=== PATIENT | male | born 1955 | race African-American/Black ===

== ENCOUNTER 2019-01-15 01:05 | Emergency (ER) | payer OTHER ==
[~2019-01-15] VITALS: Ht 172.7 cm; Wt 65.8 kg
[2019-01-15] MEDS ORDERED: NORCO 10-325 T1 EACH ORAL (01:13)
[2019-01-15] MEDS ORDERED: DILANTIN30 MG ORAL (01:13)
[2019-01-15] MEDS ORDERED: ABILIFY2 MG ORAL (01:13)
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
[2019-01-15] MEDS ORDERED: HYDROmorphone 1mg/ml Carpuject IM ONE (01:30)
[2019-01-15] MEDS ORDERED: Tetanus/Diptheria/Pertussis IM ONE (01:30)
[2019-01-15] MEDS ORDERED: CEPHALEXIN500 MG ORAL (02:13)
[2019-01-15] MEDS ORDERED: HYDROCODON-ACE1 EA15 ORAL (02:13)
[2019-01-15] MEDS ORDERED: HYDROcodone/Acetamin 5/325 tab ORAL ONE (02:15)
[2019-01-15 02:30] VITALS: BP 138/64
--- NOTE | 2019-01-15 03:30 | NUR ---
ED Nurse Note: MEDS GIVEN FOR PAIN EFFECTIVE, PT STATES PAIN AT 3/10, PT REMAINS ON CARDIAC MONITORING, DENIES CP, NO SZ ACTIVITY NOTED, V/S STABLE, MD AT BEDSIDE SUTURING LAC TO PT LEFT ELBOW, WILL RESUME CARE ORDERED AND CONTINUE TO CLOSELY MONITOR, PT CONTINUES TO REST QUIETLY IN BED.
[2019-01-15] MEDS ORDERED: Propofol 200mg/20ml IV ONE (03:45)
--- NOTE | 2019-01-15 05:00 | NUR ---
ED Nurse Note: PT IN BED SLEEPING, AROUSES EASILY TO VERBAL STIMULI, PT TO BE DISCHARGEDF IN AM, REMAINS ON SEIZURE PRECAUTIONS, NO ACTIVITY NOTED, PT ON CARDIAC MONITORING, V/S STABLE, NO CP OR ANY PAIN, PT TO BE DISCHARGED IN AM, STATING THE HOUSE HE IS STAYING AT HE CANT GO TIL AM, PT GIVEN SANDWICH, JUICE AND FRUIT, ATE ALL AND TOLERATED WELL, WILL CONTINUE TO CLOSELY MONITOR AND DISCHARGE IN AM.
[2019-01-15 05:20] VITALS: BP 129/72
[2019-01-15 06:45] VITALS: BP 124/79
--- NOTE | 2019-01-15 06:45 | NUR ---
ED Nurse Note: Pt being d/c to home, awake, alert and oriented x 4, ambulatory, denies pain, pt given taxi voucher to residence, pt also given f/u info and after care instructions, pt re-verbalizes proper medication administration, pt now denies being homeless and is going to address where he resides, pt leaving ambulatory, assisted to taxi, has all belongings, nad noted chasidy d/c.
[2019-01-15 07:02] VITALS: BP 124/79
== END 2019-01-15 07:04 | disposition home or self-care (01) ==
LOC: EDBD 01:05 → EMR 01:14
DX: R51 Headache (principal); S51.012A Laceration without foreign body of left elbow, initial encounter; S09.90XA Unspecified injury of head, initial encounter; W19.XXXA Unspecified fall, initial encounter; Y92.9 Unspecified place or not applicable; I10 Essential (primary) hypertension; Z23 Encounter for immunization
CPT/HCPCS: 12001; 70450; 73080; 90471; 90715; 99284; J1170; Z7502

== ENCOUNTER 2019-06-28 19:22 | Emergency (ER) | payer MEDICARE, OTHER ==
[~2019-06-28] VITALS: Ht 172.7 cm; Wt 59.9 kg
[~2019-06-28 19:22] MED LIST: ABILIFY2 MG ORAL; CEPHALEXIN500 MG ORAL; DILANTIN30 MG ORAL; HYDROCODON-ACE1 EA15 ORAL; NORCO 10-325 T1 EACH ORAL
--- NOTE | 2019-06-28 19:33 | NUR ---
ED Nurse Note: Pt EYAD fom street c/o dizziness and headache for 12 hrs. Pt stated unk cause, "room is spinning". hx of blindness worse on RT eye. Denies trauma. Pt is AAOx4, vss no acute distress
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
[2019-06-28] MEDS ORDERED: Bactrim-DS 1 tab ORAL ONE (21:15)
[2019-06-28] MEDS ORDERED: cefTRIAXone 1 GM in NS 55 ML IVPB ONE (21:15)
[2019-06-28 21:16] LABS: ANION GAP 11 mmol/L (5-15); BLOOD UREA NITROGEN 12 mg/dL (7-18); CALCIUM 9.8 MG/DL (8.5-10.1); CARBON DIOXIDE 27 MMOL/L (21-32); CHLORIDE 106 MMOL/L (98-107); CREATININE 1.1 MG/DL (0.55-1.30); POTASSIUM 4.7 MMOL/L (3.5-5.1); SODIUM 144 MMOL/L (136-145)
[2019-06-28 21:21] LABS: BASOPHILS % (AUTO) 1.8 % (0.0-2.0); EOSINOPHILS % (AUTO) 0.5 % (0.0-3.0); HEMOGLOBIN 15.1 G/DL (14.2-18.0); MEAN CORPUSCULAR VOLUME 94 FL (80-99); MONOCYTES % (AUTO) 15.4 % (1.0-10.0); NEUTROPHILS % (AUTO) 59.4 % (45.0-75.0); PLATELET COUNT 205 K/UL (150-450); RED BLOOD COUNT 4.99 M/UL (4.70-6.10); RED CELL DISTRIBUTION WIDTH 14.1 % (11.6-14.8); WHITE BLOOD COUNT 8.4 K/UL (4.8-10.8)
[2019-06-28] MEDS ORDERED: IBUPROFEN600 MG ORAL (21:25)
[2019-06-28] MEDS ORDERED: BACTRIM DS TAB1 EAC1 ORAL (21:25)
[2019-06-28 21:29] LABS: ALANINE AMINOTRANSFERASE 46 U/L (12-78); ALBUMIN 3.8 G/DL (3.4-5.0); ALBUMIN/GLOBULIN RATIO 0.7 (1.0-2.7); ALKALINE PHOSPHATASE 55 U/L (46-116); ASPARTATE AMINO TRANSFERASE 56 U/L (15-37); BILIRUBIN,TOTAL 0.8 MG/DL (0.2-1.0)
[2019-06-28 22:00] VITALS: BP 129/86
--- NOTE | 2019-06-28 22:00 | NUR ---
SPOKE TO ARIS, PT CAN GO TO [facility] AT 7AM.
--- NOTE | 2019-06-29 05:48 | NUR ---
ED Nurse Note: Pt is sleeping and waiting for a taxi.
[2019-06-29 07:00] VITALS: BP 126/83
[2019-06-29 07:30] VITALS: BP 126/83
--- NOTE | 2019-06-29 07:30 | NUR ---
ER DISCHARGE NOTE:pt. was provided with taxi voucher and seeted into the cab Patient is cleared to be discharged per ERMD, pt is aox4, on room air, with stable vital signs. pt was given dc and prescription instructions, pt was able to verbalize understanding, pt id band and iv site removed without complications. pt is able to ambulate with cane and steady gait. pt took all belongings.
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
== END 2019-06-29 07:30 | disposition home or self-care (01) ==
LOC: EDBD 19:22 → EMR 23:03
DX: R53.1 Weakness (principal); J32.0 Chronic maxillary sinusitis; E86.0 Dehydration; H54.3 Unqualified visual loss, both eyes; I10 Essential (primary) hypertension; F17.210 Nicotine dependence, cigarettes, uncomplicated
CPT/HCPCS: 36415; 70450; 80053; 84443; 85025; 85610; 85730; 96365; 99284; J0696

== ENCOUNTER 2019-08-14 07:00 | Inpatient (IN) | payer MEDICARE, OTHER ==
[~2019-08-14] VITALS: Ht 175.3 cm; Wt 57.8 kg
[~2019-08-14 07:00] MED LIST changes: +BACTRIM DS TAB1 EAC1 ORAL; +IBUPROFEN600 MG ORAL
[2019-08-14 07:10] VITALS: BP 143/90
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
[2019-08-14] MEDS ORDERED: HYDROcodone/Acetamin 5/325 tab ORAL ONE (07:15)
[2019-08-14 07:47] LABS: BASOPHILS % (AUTO) 1.7 % (0.0-2.0); EOSINOPHILS % (AUTO) 0.3 % (0.0-3.0); HEMATOCRIT 40.8 % (42.0-52.0); HEMOGLOBIN 13.3 G/DL (14.2-18.0); LYMPHOCYTES % (AUTO) 29.4 % (20.0-45.0); MEAN CORPUSCULAR VOLUME 91 FL (80-99); MONOCYTES % (AUTO) 14.8 % (1.0-10.0); NEUTROPHILS % (AUTO) 53.7 % (45.0-75.0); PLATELET COUNT 187 K/UL (150-450); RED BLOOD COUNT 4.51 M/UL (4.70-6.10); RED CELL DISTRIBUTION WIDTH 13.9 % (11.6-14.8); WHITE BLOOD COUNT 10.3 K/UL (4.8-10.8)
[2019-08-14 07:58] LABS: ANION GAP 8 mmol/L (5-15); BLOOD UREA NITROGEN 28 mg/dL (7-18); CALCIUM 8.6 MG/DL (8.5-10.1); CARBON DIOXIDE 28 MMOL/L (21-32); CHLORIDE 106 MMOL/L (98-107); CREATININE 1.2 MG/DL (0.55-1.30); POTASSIUM 4.3 MMOL/L (3.5-5.1); SODIUM 142 MMOL/L (136-145)
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
[2019-08-14 08:08] LABS: ALANINE AMINOTRANSFERASE 46 U/L (12-78); ALBUMIN 3.5 G/DL (3.4-5.0); ALBUMIN/GLOBULIN RATIO 0.7 (1.0-2.7); ALKALINE PHOSPHATASE 50 U/L (46-116); ASPARTATE AMINO TRANSFERASE 95 U/L (15-37); BILIRUBIN,TOTAL 0.5 MG/DL (0.2-1.0)
--- NOTE | 2019-08-14 08:40 | NUR ---
ED Nurse Note: contacted neighborhood planner for placement per ERMD's order.
[2019-08-14 09:10] VITALS: BP 146/88
[2019-08-14 11:10] VITALS: BP 148/87
--- NOTE | 2019-08-14 12:14 | NUR ---
ED Nurse Note: pt moved to Hallway bed due to stable vital signs.
[2019-08-14 13:10] VITALS: BP 136/85
--- NOTE | 2019-08-14 14:19 | NUR ---
ED Nurse Note: communications planner at the bedside.
--- NOTE | 2019-08-14 14:28 | NUR ---
ED Nurse Note: AVILA FOLEY
--- NOTE | 2019-08-14 14:32 | NUR ---
ED Nurse Note: per outreach coordinator, pt is not homeless. discharg coordinator called pt's clinical social work therapist and was able to speak to pt's nephew. he will pick pt up after work. CN made aware.
[2019-08-14 17:10] VITALS: BP 137/84
--- NOTE | 2019-08-14 17:30 | NUR ---
ED Nurse Note: SPOKE WITH AVILA FOLEY , THE NEPHEW THAT HE GETS OUT AT 10PM AND INFORMED HIM IF ANYONE IS AT HOME SO WE CAN PROVIDE TRANSPORTATION FOR THEN PT. AVILA STATED THAT HE GETS OFF NOW AROUND [id number]. WAS TOLD THAT HE MIGHT PICK HIM UP TOMORROW IF CANNOT TODAY
--- NOTE | 2019-08-14 19:09 | NUR ---
HAND-OFF: Report given to MARION Deleon. no orders to carry at this moment. waiting for the nephew to pick pt up. pt stable.
--- NOTE | 2019-08-14 19:10 | NUR ---
ED Nurse Note: Received pt from Sonny. RN. Pt stable and in bed. No sign of distress.
--- NOTE | 2019-08-14 21:10 | NUR ---
ED Nurse Note: Pt in bed with no sign of distress.
--- NOTE | 2019-08-14 21:45 | NUR ---
Note cristinacarmelo in EDM - 08/14/19 at 2207 by TODDEARING ER DISCHARGE NOTE: Patient is cleared to be discharged per ERMD, pt is aox4, on room air, with stable vital signs. pt was given dc and prescription instructions, pt was able to verbalize understanding, pt id band and iv site removed without complications. pt is able to ambulate with steady gait. pt took all belongings.
[2019-08-14 22:30] VITALS: BP 130/81
--- NOTE | 2019-08-14 23:15 | NUR ---
ED Nurse Note: Pt is sleeing with no complaints. Pt refused food and drink.
--- NOTE | 2019-08-15 00:31 | NUR ---
ED Nurse Note: Pt resting with no complaints.
[2019-08-15 00:33] VITALS: BP 135/86
--- NOTE | 2019-08-15 02:00 | NUR ---
ED Nurse Note: Pt is resting after eating.
--- NOTE | 2019-08-15 04:15 | NUR ---
Pt is resting.
--- NOTE | 2019-08-15 05:04 | NUR ---
ED Nurse Note: Called family for pick-up update; no one answered or replied.
--- NOTE | 2019-08-15 07:22 | Cardiology Report ---
APPROVED REPORT EKG Measurement Heart [id number] Sinus rhythm with premature atrial complexes Possible Left atrial enlargement Left ventricular hypertrophy Prolonged QT Abnormal ECG
--- NOTE | 2019-08-15 08:25 | NUR ---
CALLED AVILA TO FIND OUT WHAT TIME HE WILL BE COMING TO STEAM AND POWER SUPERINTENDENT THE PATIENT LEFT THE MESSAGE
[2019-08-15 09:12] VITALS: BP 146/96
--- NOTE | 2019-08-15 09:14 | NUR ---
ED Nurse Note: call placed to José Miguel nephew tp come get pt. voicemail left, pt aware. pt requesting eye patch. given to pt gauze pad. storage battery charger aware awaiting family to pick remover pt.
[2019-08-15 15:34] VITALS: BP 145/82
[2019-08-15] MEDS ORDERED: HydrALAZINE 25mg tab ORAL PRN (16:45)
[2019-08-15] MEDS: Docusate 100mg cap ORAL SCH (18:29)
--- NOTE | 2019-08-15 19:25 | NUR ---
NURSE NOTES: Received a report from MARION Pulido. Pt is in stable condition. AOX2. Able to make needs known. On room air. No c/o pain/discomfort. IV site is patent and intact. Bed in lowest position. Bed alarm is on. Will continue to monitor.
--- NOTE | 2019-08-15 19:34 | NUR ---
HAND-OFF: Report given to Elia SCHULTZ. pt in stable condition. - incoming nurse is aware that pt needs to NPO after midnight for EGD. Addendum: 08/15/19 at 1936 by Ashok Conn RN this notes belong to another patient. Pls discard
[2019-08-15 19:56] VITALS: BP 131/89
[2019-08-16 04:00] VITALS: BP 143/102
[2019-08-16 05:53] LABS: BASOPHILS % (AUTO) 0.9 % (0.0-2.0); EOSINOPHILS % (AUTO) 1.7 % (0.0-3.0); HEMOGLOBIN 14.4 G/DL (14.2-18.0); LYMPHOCYTES % (AUTO) 41.6 % (20.0-45.0); MEAN CORPUSCULAR VOLUME 90 FL (80-99); NEUTROPHILS % (AUTO) 39.9 % (45.0-75.0); PLATELET COUNT 152 K/UL (150-450); RED BLOOD COUNT 4.97 M/UL (4.70-6.10); RED CELL DISTRIBUTION WIDTH 13.4 % (11.6-14.8); WHITE BLOOD COUNT 6.5 K/UL (4.8-10.8)
[2019-08-16 06:01] LABS: APPEARANCE,URINE CLEAR; BILIRUBIN, URINE NEGATIVE (NEGATIVE); GLUCOSE, URINE (UA) NEGATIVE (NEGATIVE); KETONES,URINE NEGATIVE (NEGATIVE); LEUKOCYTE ESTERASE ,URINE 2+ (NEGATIVE); NITRITE,URINE NEGATIVE (NEGATIVE); PH,URINE 6 (4.5-8.0); PROTEIN,URINE NEGATIVE (NEGATIVE); UROBILINOGEN,URINE 4 MG/DL (0.0-1.0)
[2019-08-16 06:24] LABS: ALANINE AMINOTRANSFERASE 53 U/L (12-78); ALBUMIN 3.2 G/DL (3.4-5.0); ALBUMIN/GLOBULIN RATIO 0.7 (1.0-2.7); ALKALINE PHOSPHATASE 51 U/L (46-116); ANION GAP 5 mmol/L (5-15); ASPARTATE AMINO TRANSFERASE 80 U/L (15-37); BILIRUBIN,TOTAL 1.4 MG/DL (0.2-1.0); BLOOD UREA NITROGEN 14 mg/dL (7-18); CALCIUM 8.6 MG/DL (8.5-10.1); CARBON DIOXIDE 30 MMOL/L (21-32); CHLORIDE 102 MMOL/L (98-107); CHOLESTEROL 151 MG/DL (< 200); CREATININE 0.9 MG/DL (0.55-1.30); HDL CHOLESTEROL 78 MG/DL (40-60); PHOSPHORUS 3.5 MG/DL (2.5-4.9); POTASSIUM 3.8 MMOL/L (3.5-5.1); SODIUM 137 MMOL/L (136-145); TRIGLYCERIDES 52 MG/DL (30-150)
[2019-08-16 06:41] LABS: BILIRUBIN,DIRECT 0.4 MG/DL (0.0-0.3)
[2019-08-16 07:00] LABS: COLOR,URINE YELLOW
--- NOTE | 2019-08-16 07:40 | NUR ---
HAND-OFF: Report given to MARION Pulido.
--- NOTE | 2019-08-16 07:51 | NUR ---
NURSE NOTES: Received report from Monique SCHULTZ, pt sleeping in bed with no signs of distress or other issues at this time. IV on right AC gauge#20 heplock. call light within reach, bed in lowest position. side rales up x2. I will f/u as needed. - pending placement.
[2019-08-16] MEDS: Docusate 100mg cap ORAL SCH ×3 (08:27→16:47)
--- NOTE | 2019-08-16 10:01 | NUR ---
*-* NO INSURANCE INFORMATION IN THE BAR UNABLE TO SEND CLINICALS OR REVIEWS *-*
[2019-08-16 12:00] VITALS: BP 116/68
[2019-08-16] MEDS: HYDROcodone/Acetamin 5/325 tab ORAL PRN (16:47)
--- NOTE | 2019-08-16 19:27 | NUR ---
HAND-OFF: Report given to Jeremie SCHULTZ, pt in stable condition. During my shift multiple attempt were made to his caregiver at [phone](P) also called and left messages to pt's adoption social worker Mrs. Suazo at [phone](P) from the [facility] dept. per patient she has the information of his caregiver as well as his address. awaiting for respond. Incoming nurse is aware.
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
[2019-08-16 20:00] VITALS: BP 130/83
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
--- NOTE | 2019-08-17 02:15 | History and Physical Report ---
DATE OF ADMISSION: 08/16/2019 HISTORY OF PRESENT ILLNESS: The patient is admitted for weakness, azotemia, low magnesium level. The patient also complains of chronic pain and headaches. Denies nausea, vomiting, or diarrhea. No shortness of breath. Denies cough. Denies chills. PAST MEDICAL HISTORY: Chronic pain syndrome, psychosis, history of seizure, and constipation. PAST SURGICAL HISTORY: Brain surgery and eye surgery. SOCIAL HISTORY: History of smoking. The patient is homeless. Denies alcohol or illicit drugs. ALLERGIES: No known allergies. MEDICATIONS: Abilify and Dilantin. Takes pain medication. FAMILY HISTORY: Noncontributory. REVIEW OF SYSTEMS: HEENT: He does have headache occasionally. CARDIOVASCULAR: Denies chest pain. RESPIRATORY: Denies orthopnea. GASTROINTESTINAL: Denies nausea, vomiting, or diarrhea. EXTREMITIES: Does have chronic pain. NEUROLOGIC: Denies change in speech pattern. The patient has poor vision. PHYSICAL EXAMINATION: VITAL SIGNS: Temperature is 98.3, pulse 68, and blood pressure 139/89. HEENT: PERRLA. NECK: Supple. No lymphadenopathy. CHEST: Clear to auscultation. CARDIOVASCULAR: Regular rate and rhythm. No murmurs or extra sounds. GASTROINTESTINAL: Soft, nontender, and nondistended. No organomegaly. EXTREMITIES: No edema. Moves all four extremities. NEUROLOGIC: Sensory is intact to light touch. Reflexes equal on both sides with generalized weakness. LABORATORY DATA: WBC of 10.3 and hemoglobin of 13.3. Sodium 142, potassium 4.3, BUN of 20, and creatinine 1.2. ASSESSMENT AND PLAN: 1. Weakness. 2. Dehydration. 3. Azotemia. 4. Psychiatric patient . I have asked Dr. Pompa, Dr. Astudillo, and Dr. Kuo to see the patient for the chronic pain and weakness as well as azotemia. Mj Cheng M.D. DR: Velma JOB#: [id number] CC:
--- NOTE | 2019-08-17 06:20 | NUR ---
NURSE NOTES: Dr. Preciado called and spoke with me. He would like to wean the patient off the dilaudid. Continue to administer roxicodone Q3hr per order. Only use dilaudid as breakthrough. Addendum: 08/17/19 at 0630 by Jereime Morales RN Wrong patient documentation
--- NOTE | 2019-08-17 07:00 | NUR ---
NURSE NOTES: HANDOFF RECEIVED FROM MRAION CROCKER. PATIENT RECEIVED AWAKE AND ALERT, RESTING IN BED. PATIENT ABLE TO MAKE NEEDS KNOWN. BED IN THE LOW AND LOCKED POSITION WITH CALL LIGHT WITHIN REACH. PATIENT HAS NO IV ACCESS, NO ORDERS FOR IV FLUIDS. NO VISIBLE SIGNS OF DISTRESS NOTED. WILL CONTINUE TO MONITOR.
--- NOTE | 2019-08-17 07:29 | NUR ---
HAND-OFF: Report given to CHIARA ROLDAN RN. PATIENT IN STABLE CONDITION.
[2019-08-17] MEDS: Docusate 100mg cap ORAL SCH ×3 (08:25→17:51)
[2019-08-17] MEDS: HYDROcodone/Acetamin 5/325 tab ORAL PRN (08:28)
[2019-08-17 08:34] VITALS: BP 135/90
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
--- NOTE | 2019-08-17 11:10 | NUR ---
NURSE NOTES: ASSISTED PATIENT IN ATTEMPTING TO CALL HIS NEPHEW AVILA AND PT SKILLED POWER DRAKE MULTIPLE TIMES THIS AM. PATIENT'S NEPHEW'S PHONE GOING STRAIGHT TO VOICEMAIL. DID NOT HAVE ANY LUCK IN SPEAKING TO THE PT SKILLED EITHER. PATIENT LEFT MESSAGE FOR PT SKILLED AND HOPES TO HEAR BACK.
[2019-08-17 11:36] VITALS: BP 140/93
[2019-08-17 11:38] LABS: APPEARANCE,URINE CLEAR; BILIRUBIN, URINE NEGATIVE (NEGATIVE); COLOR,URINE PALE YELLOW; GLUCOSE, URINE (UA) NEGATIVE (NEGATIVE); KETONES,URINE NEGATIVE (NEGATIVE); LEUKOCYTE ESTERASE ,URINE 2+ (NEGATIVE); NITRITE,URINE NEGATIVE (NEGATIVE); PH,URINE 5 (4.5-8.0); PROTEIN,URINE NEGATIVE (NEGATIVE); UROBILINOGEN,URINE NORMAL MG/DL (0.0-1.0)
--- NOTE | 2019-08-17 11:41 | NUR ---
*-* INSURANCE *-* ALL AVAILABLE CLINICALS HAVE BEEN FAXED TO: WILMAN Hung CM or Ref# yet #[phone] fax#[phone]
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
--- NOTE | 2019-08-17 18:10 | NUR ---
NURSE NOTES: NOTICED PATIENT DOES NOT HAVE ANY DVT/VTE PROPHYLAXIS. CALLED AND LEFT A MESSAGE FOR DR BLEDSOE. AWAITING TO HEAR BACK FOR ORDERS.
--- NOTE | 2019-08-17 19:34 | NUR ---
HAND-OFF: Report given to MARION ALONSO.
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
[2019-08-17 19:57] VITALS: BP 128/85
--- NOTE | 2019-08-17 21:22 | General Progress Note ---
Assessment/Plan Problem List: (1) Chronic headache ICD Codes: R51 - Headache SNOMED: 068327396, 470863526 (2) Dizziness ICD Codes: R42 - Dizziness and giddiness SNOMED: 623016036, 762406535 (3) Generalized weakness ICD Codes: R53.1 - Weakness SNOMED: 20008365 Status: progressing Assessment/Plan: weakness chronic pain r/o uti afebrile reviewed chart and labs Subjective ROS Limited/Unobtainable: Yes Allergies: Coded Allergies: No Known Allergies (Unverified , 01/15/19) Objective Last 24 Hour Vital Signs Date Time Temp Pulse Resp B/P (MAP) Pulse Ox O2 Delivery O2 Flow Rate FiO2 08/17/19 11:36 97.3 64 20 140/93 (109) 96 08/17/19 09:00 Room Air 08/17/19 08:34 98.1 69 20 135/90 (105) 97 08/17/19 08:27 69 135/90 Intake and Output 08/16/19 08/17/19 19:00 07:00 Intake Total 960 ml Balance 960 ml Intake Oral 960 ml # Voids 3 Laboratory Tests 08/17/19 11:20: Urine Color Pale yellow, Urine Appearance Clear, Urine pH 5, Urine Specific [place] 1.010, Urine Protein Negative, Urine Glucose (UA) Negative, Urine Ketones Negative, Urine Blood Negative, Urine Nitrite Negative, Urine Bilirubin Negative, Urine Urobilinogen Normal, Urine Leukocyte Esterase 2+H, Urine RBC 0- 2H, Urine WBC 10-15H, Urine Squamous Epithelial Cells Few, Urine Bacteria Few Height (Feet): 5 Height (Inches): 9.00 Weight (Pounds): 127 Neck: supple Cardiovascular: normal rate Respiratory/Chest: lungs clear Mj Cheng MD Aug 17, 2019 21:22
--- NOTE | 2019-08-18 07:36 | NUR ---
HAND-OFF: Report given to MARION Prater.
--- NOTE | 2019-08-18 07:49 | NUR ---
NURSE NOTES: received report from MARION Wiggins. patient in bed. sleeping. breathing even and unlabored. no facial grimacing noted. IV on RFA 22 saline lock intact. ID band on lt arm. legally blind with need assist for ambulation and bathroom. bed in the lowest position and locked. call light within reach. alarm on. will continue to provide plan of care.
[2019-08-18 08:00] VITALS: BP 147/91
[2019-08-18] MEDS: Docusate 100mg cap ORAL SCH ×3 (08:53→17:46)
[2019-08-18 08:55] VITALS: BP 147/91
[2019-08-18] MEDS: HYDROcodone/Acetamin 5/325 tab ORAL PRN ×2 (08:59→21:45)
--- NOTE | 2019-08-18 09:30 | NUR ---
NURSE NOTES: Dr. Cheng called in and talked to the patient for discharge plan. RN received order from DR. Cheng. the patient will be discharged to [facility] under Dr. Cheng care on 08/19/2019. order noted and carried out.
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
--- NOTE | 2019-08-18 09:54 | NUR ---
Social Work This Sw met with patient to discuss discharge planning. Patient appears realistic regarding his nephew not being a good contact for assistance after discharge and realizes he is on his own regarding discharge plans from here. Patient explains he spoke with primary M.D and in agreement with placement tomorrow at [facility]. Patient explains he will follow up with a friend after discharge to locate his section 8 Housing (has been approved for this). Due to his blindness, patient will require assistance with this, along with [facility] caregiver to assist him with groceries, transportation, etc once he is in his new apartment. Patient also explains he is thinking about moving to [place], [place] to live with his nice, who is more reliable for him. This SW provided support and counseling regarding problem solving and decision making towards his housing and care needed after discharge. No other needs or concerns present at this time.
--- NOTE | 2019-08-18 10:02 | NUR ---
NURSE NOTES: patient dilantin level 0.5 on 08/15/19. patient takes dilantin 30mg cap Q8hors at home. RN paged Baudilio Purvis and waiting for further order.
--- NOTE | 2019-08-18 10:18 | Nephrology Progress Note ---
Assessment/Plan Problem List: (1) Generalized weakness (2) HTN (hypertension) (3) Possible urinary tract infection Assessment HTN UTI chronic headaches Psych disease Plan BP meds Per consultants re check UA and c/s Subjective ROS Limited/Unobtainable: No Objective Objective Last 24 Hour Vital Signs Date Time Temp Pulse Resp B/P (MAP) Pulse Ox O2 Delivery O2 Flow Rate FiO2 08/18/19 09:00 Room Air 08/18/19 08:55 98.0 76 19 147/91 (109) 97 08/18/19 08:55 76 147/91 08/18/19 08:00 98.0 59 19 147/91 (109) 97 08/17/19 21:00 Room Air 08/17/19 19:57 98.4 63 19 128/85 (99) 100 08/17/19 11:36 97.3 64 20 140/93 (109) 96 Intake and Output 08/17/19 08/18/19 18:59 06:59 Intake Total 720 ml 480 ml Output Total 400 ml 1550 ml Balance 320 ml -1070 ml Intake Oral 720 ml 480 ml Output Urine Total 400 ml 1550 ml # Voids 3 3 Laboratory Tests 08/17/19 11:20: Urine Color Pale yellow, Urine Appearance Clear, Urine pH 5, Urine Specific [place] 1.010, Urine Protein Negative, Urine Glucose (UA) Negative, Urine Ketones Negative, Urine Blood Negative, Urine Nitrite Negative, Urine Bilirubin Negative, Urine Urobilinogen Normal, Urine Leukocyte Esterase 2+H, Urine RBC 0- 2H, Urine WBC 10-15H, Urine Squamous Epithelial Cells Few, Urine Bacteria Few Height (Feet): 5 Height (Inches): 9.00 Weight (Pounds): 127 General Appearance: no apparent distress Objective no change Beka Astudillo MD Aug 18, 2019 10:18
[2019-08-18 12:00] VITALS: BP 128/84
--- NOTE | 2019-08-18 15:32 | NUR ---
STEEL LAYERCASH ACCOUNTING CLERK SI; WEAKNESS T. 98.1 HR 59 RR 19 B/P 147/91 IS: NEURONTIN PO SEROQUEL PO NORVASC PO PROTONIX PO PLACEMENT PENDING MED/SURG STATUS
--- NOTE | 2019-08-18 18:45 | Progress Note ---
DATE: 08/18/2019 SUBJECTIVE: The patient is in bed, no acute distress noted. The patient is awaiting discharge, calm cooperative, legally blind, some anxiety however is manageable. He is being discharged to a facility. MENTAL STATUS EVALUATION: Alert and oriented times self, place, and situation. Mood is neutral. Affect is constricted. Congruent with mood. Thought process is concrete. Thought content, no suicidal or homicidal ideation. ASSESSMENT: 1. Anxiety disorder. 2. Agitation. PLAN: 1. We will continue Seroquel as needed. 2. Provide the patient with reality orientation and supportive therapy. Jennifer Kuo M.D. DR: Darshan JOB#: [id number] CC:
--- NOTE | 2019-08-18 19:27 | NUR ---
HAND-OFF: Report given to MARION Vazquez.
--- NOTE | 2019-08-18 19:32 | NUR ---
NURSE NOTES: RECEIVED PATIENT FROM MARION REYES. PATIENT IS ASLEEP, ON ROOM AIR, NO ACUTE DISTRESS NOTED. GAUZE DRESSING NOTED ON RIGHT EYE, DRY AND INTACT. IV ON R FOREARM 22G IS INTACT AND PATENT. BED IS LOCKED AND LOW, BED ALARMS ACTIVE, SIDE RAILS UP X2, AND CALL LIGHT IS WITHIN REACH. WILL CONTINUE TO MONITOR.
[2019-08-18 19:57] VITALS: BP 128/89
--- NOTE | 2019-08-18 22:29 | General Progress Note ---
Assessment/Plan Problem List: (1) Chronic headache ICD Codes: R51 - Headache SNOMED: 324301194, 465883149 (2) Dizziness ICD Codes: R42 - Dizziness and giddiness SNOMED: 572909013, 652591091 (3) Generalized weakness ICD Codes: R53.1 - Weakness SNOMED: 84937532 Status: stable Assessment/Plan: weakness chronic pain uti needs snf reviewed chart Subjective ROS Limited/Unobtainable: Yes Allergies: Coded Allergies: No Known Allergies (Unverified , 01/15/19) Objective Last 24 Hour Vital Signs Date Time Temp Pulse Resp B/P (MAP) Pulse Ox O2 Delivery O2 Flow Rate FiO2 08/18/19 19:57 98.1 60 19 128/89 (102) 97 08/18/19 12:00 98.1 62 19 128/84 (99) 97 08/18/19 09:00 Room Air 08/18/19 08:55 98.0 76 19 147/91 (109) 97 08/18/19 08:55 76 147/91 08/18/19 08:00 98.0 59 19 147/91 (109) 97 Intake and Output 08/17/19 08/18/19 19:00 07:00 Intake Total 720 ml 480 ml Output Total 400 ml 1550 ml Balance 320 ml -1070 ml Intake Oral 720 ml 480 ml Output Urine Total 400 ml 1550 ml # Voids 3 3 Height (Feet): 5 Height (Inches): 9.00 Weight (Pounds): 127 Cardiovascular: normal rate Respiratory/Chest: lungs clear Abdomen: soft Mj Cheng MD Aug 18, 2019 22:29
[2019-08-19] VITALS: BP 112/79
[2019-08-19 04:00] VITALS: BP 139/99
--- NOTE | 2019-08-19 07:33 | NUR ---
HAND-OFF: Report given to MARION YUAN.
[2019-08-19 08:00] VITALS: BP 119/74
--- NOTE | 2019-08-19 08:06 | NUR ---
NURSE NOTES: Received pt from Taylor, RN. pt was resting comfortably no pain or acute distress, call light w/in reach.
[2019-08-19] MEDS: Docusate 100mg cap ORAL SCH ×3 (08:44→17:51)
[2019-08-19] MEDS: HYDROcodone/Acetamin 5/325 tab ORAL PRN (08:48)
--- NOTE | 2019-08-19 08:51 | NUR ---
NURSE NOTES: Notify to Dr. Langley for low dilantin level. He said that it is okay.
--- NOTE | 2019-08-19 09:51 | Nephrology Progress Note ---
Assessment/Plan Problem List: (1) Generalized weakness (2) HTN (hypertension) (3) Possible urinary tract infection Assessment HTN UTI chronic headaches Psych disease Plan BP meds Per consultants re check UA and c/s Subjective ROS Limited/Unobtainable: No Constitutional: Reports: malaise Objective Objective Last 24 Hour Vital Signs Date Time Temp Pulse Resp B/P (MAP) Pulse Ox O2 Delivery O2 Flow Rate FiO2 08/19/19 08:44 73 119/74 08/19/19 08:00 98.4 73 18 119/74 (89) 98 08/19/19 07:52 Room Air 08/19/19 04:00 98.2 64 18 139/99 (112) 98 08/19/19 00:00 97.8 80 18 112/79 (90) 98 08/18/19 21:00 Room Air 08/18/19 19:57 98.1 60 19 128/89 (102) 97 08/18/19 12:00 98.1 62 19 128/84 (99) 97 Intake and Output 08/18/19 08/19/19 19:00 07:00 Intake Total 1000 ml 1000 ml Output Total 350 ml Balance 1000 ml 650 ml Intake Oral 1000 ml 1000 ml Output Urine Total 350 ml # Voids 4 4 Height (Feet): 5 Height (Inches): 9.00 Weight (Pounds): 127 General Appearance: no apparent distress Objective no change Beka Astudillo MD Aug 19, 2019 09:51
[2019-08-19 12:00] VITALS: BP 128/87
--- NOTE | 2019-08-19 15:14 | NUR ---
DISCHARGE PLANNING: NOTE CLINICALS FAXED TO [facility] FOR REVIEW CM TO F/U Addendum: 08/19/19 at 1733 by Marianna Marks CM ADMISSIONS IS OUT FOR THE WEEKEND. [facility]ION CONNORS IS REVIEWING CLINICALS FOR ACCEPTANCE.
--- NOTE | 2019-08-19 19:24 | NUR ---
NURSE NOTES: RECEIVED PT FROM MARION YUAN. PT IS ASLEEP, ON ROOM AIR, NO ACUTE DISTRESS NOTED. DRESSING ON RIGHT EYE IS INTACT AND DRY. IV ON RIGHT FA 22G IS INTACT AND PATENT. BED IS LOCKED AND LOW, BED ALARMS ACTIVE, SIDE RAILS UP X2 AND CALL LIGHT IS WITHIN REACH. WILL CONTINUE TO MONITOR.
--- NOTE | 2019-08-19 19:28 | NUR ---
HAND-OFF: Report given to MARION Vazquez. pt is in stable condition.
[2019-08-19 19:57] VITALS: BP 114/79
--- NOTE | 2019-08-19 19:58 | General Progress Note ---
Assessment/Plan Problem List: (1) Chronic headache ICD Codes: R51 - Headache SNOMED: 663136142, 709545126 (2) Dizziness ICD Codes: R42 - Dizziness and giddiness SNOMED: 866906141, 996362523 (3) Generalized weakness ICD Codes: R53.1 - Weakness SNOMED: 12364408 Status: stable Assessment/Plan: le weakness aferile dc planning reviewed chart and labs and meds Subjective ROS Limited/Unobtainable: Yes Allergies: Coded Allergies: No Known Allergies (Unverified , 01/15/19) Objective Last 24 Hour Vital Signs Date Time Temp Pulse Resp B/P (MAP) Pulse Ox O2 Delivery O2 Flow Rate FiO2 08/19/19 12:00 97.8 62 18 128/87 (101) 98 08/19/19 08:44 73 119/74 08/19/19 08:00 98.4 73 18 119/74 (89) 98 08/19/19 07:52 Room Air 08/19/19 04:00 98.2 64 18 139/99 (112) 98 08/19/19 00:00 97.8 80 18 112/79 (90) 98 08/18/19 21:00 Room Air Intake and Output 08/18/19 08/19/19 19:00 07:00 Intake Total 1000 ml 1000 ml Output Total 350 ml Balance 1000 ml 650 ml Intake Oral 1000 ml 1000 ml Output Urine Total 350 ml # Voids 4 4 Height (Feet): 5 Height (Inches): 9.00 Weight (Pounds): 127 Neck: supple Cardiovascular: normal rate Respiratory/Chest: lungs clear Abdomen: soft Mj Cheng MD Aug 19, 2019 19:58
[2019-08-20] VITALS: BP 137/87
[2019-08-20] MEDS: HYDROcodone/Acetamin 5/325 tab ORAL PRN (00:10)
[2019-08-20 04:00] VITALS: BP 134/86
--- NOTE | 2019-08-20 05:00 | NUR ---
NURSE NOTES: PT C/O HEADACHE 06/20. PRN NORCO GIVEN. PAIN HAS SUBSIDED UPON REASSESSMENT. PT IS NOTED RESTING IN BED COMFORTABLY, NO ACUTE DISTRESS. WILL CONTINUE TO MONITOR.
--- NOTE | 2019-08-20 07:00 | NUR ---
NURSE NOTES: pt awake alert, no distress. no sob. no c/o pain. call light within reach. will monitor.
--- NOTE | 2019-08-20 07:19 | NUR ---
HAND-OFF: Report given to MARION Kyle. Patient is in stable condition. Endorsed plan of care.
[2019-08-20 07:56] VITALS: BP 130/87
[2019-08-20] MEDS: Docusate 100mg cap ORAL SCH ×3 (08:13→17:02)
--- NOTE | 2019-08-20 11:04 | General Progress Note ---
Assessment/Plan Problem List: (1) Chronic headache ICD Codes: R51 - Headache SNOMED: 548002036, 370811378 (2) Dizziness ICD Codes: R42 - Dizziness and giddiness SNOMED: 952222888, 047191850 (3) Generalized weakness ICD Codes: R53.1 - Weakness SNOMED: 06195171 Status: stable, progressing Assessment/Plan: le weakness afebrile check labs periodically reviewed chart and labs and meds Subjective ROS Limited/Unobtainable: Yes Allergies: Coded Allergies: No Known Allergies (Unverified , 01/15/19) Objective Last 24 Hour Vital Signs Date Time Temp Pulse Resp B/P (MAP) Pulse Ox O2 Delivery O2 Flow Rate FiO2 08/20/19 08:13 60 130/87 08/20/19 08:00 Room Air 08/20/19 07:56 97.5 60 17 130/87 (101) 97 08/20/19 04:00 98.5 60 17 134/86 (102) 97 08/20/19 00:00 97.5 67 19 137/87 (104) 100 08/19/19 21:00 Room Air 08/19/19 19:57 98.3 71 18 114/79 (91) 99 08/19/19 12:00 97.8 62 18 128/87 (101) 98 Intake and Output 08/19/19 08/20/19 19:00 07:00 Intake Total 1040 ml Output Total 400 ml 1200 ml Balance -400 ml -160 ml Other 1040 ml Output Urine Total 400 ml 1200 ml # Voids 4 # Bowel Movements 1 Height (Feet): 5 Height (Inches): 9.00 Weight (Pounds): 127 Neck: supple Cardiovascular: normal rate Respiratory/Chest: lungs clear Abdomen: soft Mj Cheng MD Aug 20, 2019 11:04
[2019-08-20 12:10] VITALS: BP 148/92
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
--- NOTE | 2019-08-20 14:29 | Nephrology Progress Note ---
Assessment/Plan Problem List: (1) Generalized weakness (2) HTN (hypertension) (3) Possible urinary tract infection Assessment HTN UTI chronic headaches Psych disease Plan BP meds Per consultants re check UA and c/s Subjective ROS Limited/Unobtainable: No Objective Objective Last 24 Hour Vital Signs Date Time Temp Pulse Resp B/P (MAP) Pulse Ox O2 Delivery O2 Flow Rate FiO2 08/20/19 12:10 97.5 70 17 148/92 (110) 97 08/20/19 08:13 60 130/87 08/20/19 08:00 Room Air 08/20/19 07:56 97.5 60 17 130/87 (101) 97 08/20/19 04:00 98.5 60 17 134/86 (102) 97 08/20/19 00:00 97.5 67 19 137/87 (104) 100 08/19/19 21:00 Room Air 08/19/19 19:57 98.3 71 18 114/79 (91) 99 Intake and Output 08/19/19 08/20/19 18:59 06:59 Intake Total 1040 ml Output Total 400 ml 1200 ml Balance -400 ml -160 ml Other 1040 ml Output Urine Total 400 ml 1200 ml # Voids 4 # Bowel Movements 1 Height (Feet): 5 Height (Inches): 9.00 Weight (Pounds): 127 General Appearance: no apparent distress Objective no change Beka Astudillo MD Aug 20, 2019 14:29
[2019-08-20 16:00] VITALS: BP 124/90
--- NOTE | 2019-08-20 19:22 | NUR ---
HAND-OFF: Report given to JADE SCHULTZ.
[2019-08-20 21:31] VITALS: BP 129/83
[2019-08-21] VITALS: BP 140/82
--- NOTE | 2019-08-21 00:26 | NUR ---
AWAKE,ALERT,HS SNACK GIVEN.DOZING ON AND OFF,IN NO DISTRESS.FOR D/C TOMORROW.
--- NOTE | 2019-08-21 06:03 | NUR ---
ASLEEP,REFUSED VITAL SIGNS TAKEN AT THIS TIME,IN NO DISTRESS.
--- NOTE | 2019-08-21 06:06 | NUR ---
HAND-OFF: Report given to MARION MALCOLM.
[2019-08-21 08:00] VITALS: BP 144/80
--- NOTE | 2019-08-21 08:00 | NUR ---
NURSE NOTES: Received patient in bed, awake, alert, no complaint of pain or discomfort, no sign of distress noted. Patient has a patch dressing consisting of a 2x2 gauze at his right eye, dry, intact. IV access on the right antecubital, saline locked. Bed locked at lowest position possible, call light with easy reach, siderails upx2. Cane by the bedside. Will continue to monitor patint and follow up with the plan of care.
[2019-08-21] MEDS: Docusate 100mg cap ORAL SCH ×3 (08:57→17:12)
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
--- NOTE | 2019-08-21 10:06 | NUR ---
NURSE NOTES: patient tries to contact his nephew José Miguel Reyes, nurse helps patient with the call. Patient leaves message at his nephew's voicemail regarding paperwork for section 8.
[2019-08-21 12:00] VITALS: BP 138/79
--- NOTE | 2019-08-21 13:55 | Nephrology Progress Note ---
Assessment/Plan Problem List: (1) Generalized weakness (2) HTN (hypertension) (3) Possible urinary tract infection Assessment HTN UTI chronic headaches Psych disease Plan BP meds Per consultants re check UA and c/s Negative Subjective ROS Limited/Unobtainable: No Constitutional: Reports: malaise Objective Objective Last 24 Hour Vital Signs Date Time Temp Pulse Resp B/P (MAP) Pulse Ox O2 Delivery O2 Flow Rate FiO2 08/21/19 09:00 Room Air 08/21/19 08:57 67 144/80 08/21/19 08:00 97.6 67 18 144/80 (101) 98 08/21/19 00:00 97.5 70 17 140/82 (101) 97 08/20/19 21:31 97.6 72 18 129/83 (98) 99 08/20/19 21:00 Room Air 08/20/19 16:00 97.5 65 17 124/90 (101) 97 Intake and Output 08/20/19 08/21/19 19:00 07:00 Intake Total 720 ml 200 ml Output Total 1100 ml 800 ml Balance -380 ml -600 ml Intake Oral 720 ml 200 ml Output Urine Total 1100 ml 800 ml # Voids 2 Height (Feet): 5 Height (Inches): 9.00 Weight (Pounds): 127 General Appearance: no apparent distress Objective no change Beka Astudillo MD Aug 21, 2019 13:55
[2019-08-21 16:00] VITALS: BP 128/87
--- NOTE | 2019-08-21 16:37 | NUR ---
MEDICAL TECHNICIANCANDLE MAKER SI; WEAKNESS T. 97.5 HR 70 RR 18 B/P 140/82 RA 98% IS: NORVASC PO NEURONTIN PO PROTONIX PLACEMENT PENDING MED/SURG STATUS
--- NOTE | 2019-08-21 19:15 | NUR ---
NURSE NOTES: Received a report from MARION Palomo. Pt is in stable condition. AAOX4. Able to make needs known. On room air. IV site is patent and intact. Bed in lowest position. Bed alarm is on. Call light within reach. Will continue to monitor.
--- NOTE | 2019-08-21 19:34 | NUR ---
HAND-OFF: Report given to MARION Richards.
[2019-08-21 20:00] VITALS: BP 119/78
--- NOTE | 2019-08-21 21:09 | General Progress Note ---
Assessment/Plan Problem List: (1) Chronic headache ICD Codes: R51 - Headache SNOMED: 854900129, 290191870 (2) Dizziness ICD Codes: R42 - Dizziness and giddiness SNOMED: 359039335, 166893941 (3) Generalized weakness ICD Codes: R53.1 - Weakness SNOMED: 57316726 Status: progressing Assessment/Plan: no acute events afebrile weak reviewed chart and labs and meds Subjective ROS Limited/Unobtainable: Yes Allergies: Coded Allergies: No Known Allergies (Unverified , 01/15/19) Objective Last 24 Hour Vital Signs Date Time Temp Pulse Resp B/P (MAP) Pulse Ox O2 Delivery O2 Flow Rate FiO2 08/21/19 20:00 99.0 85 18 119/78 (92) 99 08/21/19 16:00 97.9 62 17 128/87 (101) 99 08/21/19 12:00 97.4 71 18 138/79 (98) 98 08/21/19 09:00 Room Air 08/21/19 08:57 67 144/80 08/21/19 08:00 97.6 67 18 144/80 (101) 98 08/21/19 00:00 97.5 70 17 140/82 (101) 97 08/20/19 21:31 97.6 72 18 129/83 (98) 99 Intake and Output 08/20/19 08/21/19 18:59 06:59 Intake Total 720 ml 200 ml Output Total 1100 ml 800 ml Balance -380 ml -600 ml Intake Oral 720 ml 200 ml Output Urine Total 1100 ml 800 ml # Voids 2 Height (Feet): 5 Height (Inches): 9.00 Weight (Pounds): 127 Cardiovascular: regular rhythm Respiratory/Chest: lungs clear Mj Cheng MD Aug 21, 2019 21:09
[2019-08-21] MEDS: HYDROcodone/Acetamin 5/325 tab ORAL PRN (22:52)
[2019-08-22] VITALS: BP 125/90
[2019-08-22 04:00] VITALS: BP 114/78
--- NOTE | 2019-08-22 06:00 | NUR ---
NURSE NOTES: Pt refused blood draw.
--- NOTE | 2019-08-22 07:00 | NUR ---
HAND-OFF: Report given to Trista Guerrero RN. Pt is in stable condition.
--- NOTE | 2019-08-22 07:24 | NUR ---
NURSE NOTES: Received report from MARION Gray. Pt is alert, awake, and oriented, sitting up in bed eating breakfast. No complaints of pain or apparent distress noted. IV site is intact. Bed locked in lowest position, side rails up, call light within reach. Will continue to monitor.
[2019-08-22 08:00] VITALS: BP 121/92
[2019-08-22] MEDS: Docusate 100mg cap ORAL SCH ×2 (08:53→13:09)
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
--- NOTE | 2019-08-22 10:13 | NUR ---
NURSE NOTES: Pt wants to be seen by the Quality Control Coordinator. RN left a message for DIANDRA Lang.
--- NOTE | 2019-08-22 10:41 | NUR ---
NURSE NOTES: Talked to DIANDRA Lang. She said she will see the pt in a minute.
--- NOTE | 2019-08-22 11:54 | NUR ---
*-* INSURANCE *-* ALL AVAILABLE CLINICALS HAVE BEEN FAXED TO: WILMAN Hung CM or Ref# yet #[phone] fax#[phone]
[2019-08-22 12:00] VITALS: BP 120/86
--- NOTE | 2019-08-22 12:28 | Nephrology Progress Note ---
Assessment/Plan Problem List: (1) Generalized weakness (2) HTN (hypertension) (3) Possible urinary tract infection Assessment HTN UTI chronic headaches Psych disease Plan refuses labs BP meds Per consultants re check UA and c/s Negative Subjective ROS Limited/Unobtainable: No Objective Objective Last 24 Hour Vital Signs Date Time Temp Pulse Resp B/P (MAP) Pulse Ox O2 Delivery O2 Flow Rate FiO2 08/22/19 09:00 Room Air 08/22/19 08:53 77 121/92 08/22/19 08:00 97.2 77 18 121/92 (102) 98 08/22/19 04:00 98.7 61 18 114/78 (90) 99 08/22/19 00:00 97.6 73 17 125/90 (102) 98 08/21/19 23:22 99.0 08/21/19 21:00 Room Air 08/21/19 20:00 99.0 85 18 119/78 (92) 99 08/21/19 16:00 97.9 62 17 128/87 (101) 99 Intake and Output 08/21/19 08/22/19 19:00 07:00 Intake Total 480 ml 480 ml Output Total 700 ml 610 ml Balance -220 ml -130 ml Intake Oral 480 ml 480 ml Output Urine Total 700 ml 610 ml # Voids 3 Height (Feet): 5 Height (Inches): 9.00 Weight (Pounds): 127 General Appearance: no apparent distress Objective no change Beka Astudillo MD Aug 22, 2019 12:28
[2019-08-22] MEDS: HYDROcodone/Acetamin 5/325 tab ORAL PRN (13:10)
--- NOTE | 2019-08-22 13:30 | NUR ---
NURSE NOTES: RN went over the DC instruction with the pt and pt's nephew, Rich Skaggs and signed by the nephew. Pt's belongings were reviewed and signed by the pt and pt's nephew Rich. IV removed by the pt as he became a bit impatient. No bleeding noted.
--- NOTE | 2019-08-22 15:45 | NUR ---
NURSE NOTES: RN called pt's nephew Rich Skaggs and next of kin José Miguel Patino to report that pt left one of his belongings bag. RN could not talk to either of the family members because they did not pickling solution maker the phone. RN left voice messages for both family members regarding his belongings bag with the call back number.
--- NOTE | 2019-08-22 16:19 | NUR ---
Pt's nephew Rich just called. He said both he and the pt will come between 1200 and 1400 tomorrow (08/23) to pick it up. Belongings bag will be kept by the nursing station.
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
--- NOTE | 2019-08-23 16:08 | NUR ---
*-* INSURANCE *-* DISCHARGE SUMMARY HAS BEEN FAXED TO: WILMAN Hung CM or Ref# yet #[phone] fax#[phone]
== END 2019-08-22 14:34 | disposition home or self-care (01) | DRG 54 ==
LOC: EDBD 07:00 → EMR 07:30 → 3E 08-15 14:02 → EDBEDREQ 08-15 15:37 → 3E 08-15 16:15 → OBSVTOIN 08-16 12:06
DX: R51 Headache (principal); R42 Dizziness and giddiness; E86.0 Dehydration; N39.0 Urinary tract infection, site not specified; G89.4 Chronic pain syndrome; Z59.0 Homelessness; H54.8 Legal blindness, as defined in USA; T14.90XS Injury, unspecified, sequela; W34.00XS Accidental discharge from unspecified firearms or gun, sequela; I10 Essential (primary) hypertension; R53.1 Weakness; G62.9 Polyneuropathy, unspecified; F99 Mental disorder, not otherwise specified; G93.40 Encephalopathy, unspecified; F41.9 Anxiety disorder, unspecified
CPT/HCPCS: 36415; 80053; 80061; 80185; 81001; 82248; 82607; 82746; 83735; 83880; 84100; 84443; 84484; 84550; 85025; 86140; 87081; 87086; 93005; 99283

== ENCOUNTER 2019-11-28 19:11 | Emergency (ER) | payer MEDICARE, OTHER ==
[~2019-11-28] VITALS: Ht 175.3 cm; Wt 81.6 kg
[2019-11-28 19:15] VITALS: BP 148/78
--- NOTE | 2019-11-28 19:15 | NUR ---
ED Nurse Note: Patient brought in by ambulance from home d/t headache for 1 hour. Patient aao x 4 and ambulatory with cane. Patient headache 02/17. Patient stable upon assessment.
--- NOTE | 2019-11-28 19:22 | NUR ---
ED Nurse Note: ERMD at bedside.
[2019-11-28] MEDS ORDERED: HYDROcodone/Acetamin 5/325 tab ORAL ONE (19:30)
--- NOTE | 2019-11-28 19:33 | NUR ---
ED Nurse Note: Patient declined medications, returned to Pyxis.
--- NOTE | 2019-11-28 20:02 | NUR ---
ED Nurse Note: Patient decided to administer norco and regLYDIA mcnulty aware. Meds administered at 2000.
[2019-11-28] MEDS ORDERED: NORCO 5-325 TA1 EACH ORAL (20:36)
[2019-11-28 20:48] VITALS: BP 152/82
--- NOTE | 2019-11-28 20:48 | NUR ---
ER DISCHARGE NOTE: Patient is cleared to be discharged per ERMD, pt is aox4, on room air, with stable vital signs. pt was given dc and prescription instructions, pt was able to verbalize understanding, pt id band removed. pt is able to ambulate. pt took all belongings. pt stable upon discharge.
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
--- NOTE | 2019-11-29 10:13 | NUR ---
POST DC SOCIAL SERVICE NOTE ROLL CAPPER Assisted pt getting transportation back home. Pt provided his nephewRich's phone number [phone]. Pt reports Rich resides the front of the house. Signed: 11/29/19 at 1014 by AJIT AVILA <Co-Signature Required>
== END 2019-11-28 20:48 | disposition home or self-care (01) ==
LOC: EDBD 19:11 → EMR 19:22
DX: R51 Headache (principal); I10 Essential (primary) hypertension; H54.7 Unspecified visual loss
CPT/HCPCS: 99283